=== PATIENT | male | born 1955 | race Caucasian/White ===

== ENCOUNTER 2020-12-01 09:53 | Outpatient (CLI) | payer BC | END 2020-12-01 23:59 | disposition home or self-care (01) | LOC: CARD 09:53 | PROVIDERS: ATTEND Internal Medicine Cardiovascular Disease | DX: I10 Essential (primary) hypertension (principal); R00.2 Palpitations | CPT/HCPCS: 93350 ==

== ENCOUNTER → 2021-01-06 | Outpatient (CLI) | payer BC ==
[~2021-01-06] MED LIST: OMNIPAQUE 350 MG/ML, 150 ML BOTTLE ONE
== END | disposition home or self-care (01) ==
LOC: CVU 12:27
PROVIDERS: ATTEND Internal Medicine Cardiovascular Disease
DX: I08.3 Combined rheumatic disorders of mitral, aortic and tricuspid valves (principal); I48.0 Paroxysmal atrial fibrillation; I11.9 Hypertensive heart disease without heart failure; R00.2 Palpitations
CPT/HCPCS: 71046; 75572; 82565; 93306; Q9967

== ENCOUNTER 2021-01-09 06:07 | Observation (INO) | payer BC ==
[~2021-01-09] VITALS: Ht 188 cm; Wt 84.1 kg
[2021-01-09] MEDS ORDERED: SODIUM CHLORIDE 0.9% 1,000 ML IV SCH (07:00)
[2021-01-09] MEDS ORDERED: SODIUM CHLORIDE 0.9% 1,000 ML IV ONE (07:00)
[2021-01-09] MEDS ORDERED: MIDAZOLAM 1 MG/ML, 2ML ONE (07:09)
[2021-01-09] MEDS ORDERED: FENTANYL PF 250 MCG/5ML ONE (07:10)
[2021-01-09] MEDS ORDERED: DEXAMETHASONE 4 MG/ML, 1ML ONE (07:13)
[2021-01-09] MEDS ORDERED: ONDANSETRON 2MG/ML, 2ML ONE (07:13)
[2021-01-09] MEDS ORDERED: ASPI81TA45 PO (07:14)
[2021-01-09] MEDS ORDERED: DEXL60CA2 PO (07:14)
[2021-01-09] MEDS ORDERED: FLEC50TA25 PO (07:14)
[2021-01-09] MEDS ORDERED: TRAM50TA2 PO (07:14)
[2021-01-09] MEDS ORDERED: PROPOFOL 10 MG/ML, 20ML ONE ×2 (07:14→09:33)
[2021-01-09] MEDS ORDERED: LORA-445 PO (07:14)
[2021-01-09] MEDS ORDERED: LOSA25TA25 PO (07:14)
[2021-01-09] MEDS ORDERED: PHENYLEPHRINE 10 MG/ML ONE (07:14)
[2021-01-09] MEDS ORDERED: MONT10TA6 PO (07:14)
[2021-01-09] MEDS ORDERED: OMEG1CAP23 PO (07:14)
[2021-01-09] MEDS ORDERED: HEPARIN 1,000 UNITS/ML, 10ML ONE ×2 (07:14)
[2021-01-09] MEDS ORDERED: ZOLP-413 PO (07:14)
[2021-01-09] MEDS ORDERED: LIDOCAINE 2%, 20ML ONE (08:00)
[2021-01-09] MEDS ORDERED: ROCURONIUM 10 MG/ML,10ML ONE (08:01)
[2021-01-09] MEDS ORDERED: SUCCINYLCHOLINE 20 MG/ML, 10ML ONE (08:01)
[2021-01-09] MEDS ORDERED: MONTELUKAST 10 MG TABLET PO PRN (11:30)
[2021-01-09] MEDS ORDERED: LORazepam 0.5MG TABLET PO PRN (11:30)
[2021-01-09] MEDS: APIXABAN 5 MG TABLET PO SCH ×2 (11:30→20:40)
[2021-01-09] MEDS ORDERED: APIXABAN 5 MG TABLET ONE (11:45)
[2021-01-09] MEDS ORDERED: PROMETHAZINE 25 MG/ML, 1ML IVPush PRN (12:00)
[2021-01-09] MEDS ORDERED: morphine SULFATE 10 MG/ML, 1ML IVPush PRN (12:00)
[2021-01-09] MEDS ORDERED: DIPHENHYDRAMINE 50 MG/ML, 1ML IVPush PRN (12:00)
[2021-01-09] MEDS ORDERED: DIAZEPAM 5 MG/ML, 2ML IVPush PRN (12:00)
[2021-01-09] MEDS ORDERED: LABETALOL 5MG/ML, 20ML IV PRN (12:00)
[2021-01-09] MEDS ORDERED: EPHEDRINE 50 MG/ML, 1ML IVPush PRN (12:00)
[2021-01-09] MEDS ORDERED: ONDANSETRON 2MG/ML, 2ML IVPush PRN (12:00)
[2021-01-09] MEDS ORDERED: MEPERIDINE/PF 25MG/0.5ML IVPush PRN (12:00)
[2021-01-09] MEDS ORDERED: EPHEDRINE 50 MG/ML, 1ML IM PRN (12:00)
[2021-01-09] MEDS ORDERED: FENTANYL PF 100 MCG/2ML IV PRN (12:00)
[2021-01-09] MEDS ORDERED: OXYcodone 5 MG/5 ML ORAL.SOL UDC PO PRN (12:00)
[2021-01-09] MEDS ORDERED: ACETAMINOPHEN 325 MG TABLET PO PRN (12:00)
[2021-01-09] MEDS ORDERED: ARTIFICIAL TEARS 15 DROP/ML BOTTLE EACHEYE PRN (15:30)
[2021-01-09] MEDS: IBUPROFEN 200 MG TABLET PO PRN (15:45)
[2021-01-09 16:18] VITALS: BP 133/69
[2021-01-09 16:22] VITALS: BP 133/69
[2021-01-09 16:24] VITALS: BP 133/69
[2021-01-09 19:12] VITALS: BP 142/76
[2021-01-09] MEDS: COLCHICINE 0.6 MG CAPSULE PO SCH (20:39)
[2021-01-09] MEDS: FLECAINIDE 50MG TABLET PO SCH (20:40)
[2021-01-09] MEDS: LOSARTAN 25MG TABLET PO SCH (20:41)
[2021-01-09] MEDS ORDERED: ZOLPIDEM 5MG TABLET PO SCH (21:00)
[2021-01-10 00:55] VITALS: BP 142/76
[2021-01-10] MEDS: IBUPROFEN 200 MG TABLET PO PRN ×2 (01:06→09:23)
[2021-01-10 07:45] VITALS: BP 138/72
[2021-01-10] MEDS ORDERED: PANTOPRAZOLE 40MG TABLET PO SCH (09:00)
[2021-01-10] MEDS ORDERED: OMEGA-3/FISH OIL CAPSULE PO SCH (09:00)
[2021-01-10 09:20] VITALS: BP 137/72
[2021-01-10] MEDS: COLCHICINE 0.6 MG CAPSULE PO SCH (09:22)
[2021-01-10] MEDS: APIXABAN 5 MG TABLET PO SCH (09:22)
[2021-01-10] MEDS: FLECAINIDE 50MG TABLET PO SCH (09:23)
[2021-01-10] MEDS: LOSARTAN 25MG TABLET PO SCH (09:23)
[2021-01-10] MEDS ORDERED: APIX5TAB PO (10:10)
[2021-01-10] MEDS ORDERED: COLC0.6C3 PO (10:10)
== END 2021-01-10 12:20 | disposition home or self-care (01) ==
LOC: CACL 06:07 → ORIP 11:06 → 5SO 12:04 → DCLOUNGE 01-10 11:51
PROVIDERS: ADMIT Internal Medicine Cardiovascular Disease; ATTEND Internal Medicine Cardiovascular Disease
DX: I48.91 Unspecified atrial fibrillation (principal); Z20.822 Contact with and (suspected) exposure to COVID-19; I10 Essential (primary) hypertension; J45.909 Unspecified asthma, uncomplicated; Z79.01 Long term (current) use of anticoagulants; Z79.899 Other long term (current) drug therapy
CPT/HCPCS: 85347; 93308; 93312; 93321; 93325; 93613; 93656; 93657; 93662; C1730; C1732; C1759; C1766; C1893; C1894; G0378; J1100; J1644; J2250; J2370; J2405; J2704; J3010; J3490; U0003; J0330